=== PATIENT | male | born 1965 | race Caucasian/White ===

== ENCOUNTER 2018-09-09 10:46 | Emergency (ER) | payer SELFPAY ==
[~2018-09-09] VITALS: Ht 172.7 cm; Wt 90.9 kg
[~2018-09-09 10:46] MED LIST: ANTIVERT PO; ZOFRAN ODT4 MG PO
[2018-09-09] MEDS ORDERED: CLEOCIN300 MG PO (12:48)
[2018-09-09] MEDS ORDERED: TORADOL PO (12:48)
[2018-09-09 12:52] VITALS: BP 126/91
== END 2018-09-09 13:01 | disposition home or self-care (01) | DRG 605 ==
LOC: ED 10:46
DX: S61.431A Puncture wound without foreign body of right hand, initial encounter (principal); L03.113 Cellulitis of right upper limb; W27.8XXA Contact with other nonpowered hand tool, initial encounter; Y93.89 Activity, other specified; Y92.89 Other specified places as the place of occurrence of the external cause; Y99.0 Civilian activity done for income or pay